=== PATIENT | male | born 1995 | race Caucasian/White ===

== ENCOUNTER 2017-05-16 19:39 | Inpatient (IN) | payer OTHER ==
[~2017-05-16] VITALS: Ht 182.9 cm; Wt 98.0 kg
[~2017-05-16 19:39] MED LIST: PERCOCET 5/31 TABLET PO
[2017-05-16 20:41] LABS: HEMATOCRIT 42.9 % (38.0-50.0); MCH 29.1 PG (29.0-34.0); MCHC 33.8 G/DL (30.0-36.0); MCV 86.1 FL (86-99); PLATELET COUNT 245 K/uL (156-360); RBC DIS.WIDTH-CV 12.9 % (11.8-14.6); RBC DIS.WIDTH-SD 39.9 % (39-53); RED BLOOD COUNT 4.98 M/uL (4.00-5.50); WHITE BLOOD COUNT 24.8 K/uL (4.1-10.2)
[2017-05-16 20:53] LABS: CHLORIDE 104 mEq/L (99-109); POTASSIUM 4.4 mEq/L (3.7-5.4); SODIUM 138 mEq/L (136-147)
[2017-05-16 20:55] LABS: GLUCOSE 98 mg/dL (70-99)
[2017-05-16 20:57] LABS: ANION GAP 10 MEQ/L (2-14); TOTAL BILIRUBIN 0.6 mg/dL (0.0-1.0)
[2017-05-16 20:59] LABS: ALKALINE PHOSPHATASE 67 IU/L (3-129); GFR ESTIMATE (CALCULATED) > 59 mL/min/
[2017-05-16 21:00] LABS: UREA NITROGEN (BUN) 15 mg/dL (9-23)
[2017-05-16 21:02] LABS: CREATINE KINASE 91 IU/L (1-294); TOTAL CK 91 IU/L (1-294)
[2017-05-16 21:08] LABS: ADD MIUA? NO; BILIRUBIN NEGATIVE; BLOOD NEGATIVE; COLOR YELLOW ((YELLOW)); GLUCOSE (STRIP) NEGATIVE; KETONES NEGATIVE; LEUKOCYTES NEGATIVE; NITRITE NEGATIVE; PROTEIN (STRIP) NEGATIVE; SPECIFIC GRAVITY 1.018 (1.000-1.030); UCUL ADDED? NO; UROBILINOGEN 0.2 MG/DL (0.2-1.0)
[2017-05-16 21:09] LABS: CK-MB < 0.4 ng/mL (0.0-4.9)
[2017-05-16 21:32] LABS: INFLUENZA A VIRAL ANTIGEN NEGATIVE; INFLUENZA B VIRAL ANTIGEN NEGATIVE
[2017-05-16 22:54] LABS: ERTH.SED.RATE 12 MM/HR (0-15)
[2017-05-16 22:57] LABS: C-REACTIVE PROTEIN 24.7 MG/L (0-10)
[2017-05-17] MEDS ORDERED: EXCEDRIN MIGRA1 EAC3 PO (01:14)
[2017-05-17 05:06] LABS: APPEARANCE CLEAR/COLORLESS; RED CELL AREA COUNTED 18; RED CELL COUNT 0 /MM^3 (0-1); RED CELL DILUTION 1
[2017-05-17 05:07] LABS: MONONUCLEAR WBC'S ND % (50-90); WBC AREA COUNTED 18; WBC DILUTION 1; WHITE CELL COUNT 0 /MM^3 (0-5); WHITE CELL RAW COUNT 0
[2017-05-17 05:08] LABS: CSF EOSINOPHILS ND % (0-25); POLYNUCLEAR WBC'S ND % (0-3); SPINAL FLD COMMENT NO RBC/WBC SEEN
[2017-05-17 05:19] VITALS: BP 117/57
[2017-05-17 07:18] LABS: HEMATOCRIT 45.2 % (38.0-50.0); MCH 29.8 PG (29.0-34.0); MCHC 33.4 G/DL (30.0-36.0); MCV 89.3 FL (86-99); RBC DIS.WIDTH-SD 42.5 % (39-53); RED BLOOD COUNT 5.06 M/uL (4.00-5.50); WHITE BLOOD COUNT 15.6 K/uL (4.1-10.2)
[2017-05-17 07:47] VITALS: BP 92/55
[2017-05-17 07:50] LABS: INTERNAL CONTROL VALID? YES; MONOSPOT (MONONUCLEOSIS SEROL) NEGATIVE
[2017-05-17 07:57] LABS: HEMATOLOGY COMMENT 1 SMEAR COMPATIBLE; MEAN PLAT.VOLUME 11.9 uM^3 (9.0-12.4); PLAT.SUFFICIENCY ADEQUATE
[2017-05-17 08:00] LABS: PLATELET COUNT 148 K/uL (156-360)
[2017-05-17 08:54] LABS: FERRITIN 186 NG/ML (22-322)
[2017-05-17 11:11] LABS: ABS NEUTROPHIL COUNT 13.7; ANISOCYTOSIS 1+; EOSINOPHIL ABS CT 0
[2017-05-17 12:37] LABS: LYME DISEASE SEROLOGY SCREEN NEGATIVE (NEGATIVE)
[2017-05-17 13:27] LABS: LYME DISEASE SEROLOGY SCREEN NEGATIVE (NEGATIVE)
[2017-05-17 15:40] VITALS: BP 130/60
[2017-05-17 23:55] VITALS: BP 156/97
[2017-05-18 07:45] LABS: EOSINOPHIL (%) 0 % (0-5); HEMATOCRIT 37.8 % (38.0-50.0); IMMATURE GRANULOCYTE (%) 0.3 % (0.0-0.7); INSTRUMENT ABS NEUTROPHIL CT 7.2 K/uL; LYMPHOCYTE COUNT 1.5 K/uL (1.0-2.8); MCH 29.7 PG (29.0-34.0); MCHC 33.6 G/DL (30.0-36.0); MCV 88.3 FL (86-99); MEAN PLAT.VOLUME 12.5 uM^3 (9.0-12.4); MONOCYTE (%) 5.2 % (3-12); MONOCYTE COUNT 0.5 K/uL (0-0.8); NEUTROPHIL (%) 78.3 % (45-76); NEUTROPHIL COUNT 7.2 K/uL (1.8-6.4); RBC DIS.WIDTH-CV 13.2 % (11.8-14.6); RBC DIS.WIDTH-SD 42.9 % (39-53); RED BLOOD COUNT 4.28 M/uL (4.00-5.50); WHITE BLOOD COUNT 9.2 K/uL (4.1-10.2)
[2017-05-18 07:46] LABS: PLATELET COUNT 198 K/uL (156-360)
[2017-05-18 07:47] VITALS: BP 135/87
[2017-05-18] MEDS ORDERED: TERBINAFINE HCL30 GM TP (10:30)
[2017-05-18] MEDS ORDERED: VIBRAMYCIN100 MG PO (10:31)
[2017-05-18] MEDS ORDERED: KEFLEX500 MG PO (10:32)
[2017-05-19 00:46] LABS: HSV CSF Spec Source CSF (())
[2017-05-20 16:01] LABS: Rickettsia (RMSF) IgG Not Detected (Not Detected); Rickettsia (RMSF) IgM Not Detected (Not Detected)
[2017-05-23 12:32] LABS: Rickettsia (RMSF) IgG Not Detected (Not Detected); Rickettsia (RMSF) IgM Not Detected (Not Detected)
== END 2017-05-18 11:45 | disposition home or self-care (01) | DRG 872 ==
LOC: EME 19:39 → EDOF 05-17 03:01 → 5SOUTH 05-17 05:13
PROVIDERS: Emergency Medicine; Hospitalist; Nurse Practitioner Adult Health; Physician Assistant
PROC: 009U3ZX Drainage of Spinal Canal, Percutaneous Approach, Diagnostic (ICD-10-PCS; principal; 2017-05-17)
DX: A41.9 Sepsis, unspecified organism (principal); A69.20 Lyme disease, unspecified; A79.9 Rickettsiosis, unspecified; B35.3 Tinea pedis; L03.116 Cellulitis of left lower limb; L03.115 Cellulitis of right lower limb; L30.9 Dermatitis, unspecified; M54.5 Low back pain; R79.82 Elevated C-reactive protein (CRP); E66.9 Obesity, unspecified; Z68.29 Body mass index [BMI] 29.0-29.9, adult; F17.220 Nicotine dependence, chewing tobacco, uncomplicated
CPT/HCPCS: 70450; 71020; 74177; 80053; 80202; 81003; 82550; 82553; 82728; 82945; 83605; 84157; 85007; 85025; 85027; 85651; 86038; 86140; 86308; 86430; 86617 90; 86618; 86618 90; 86757 90; 87040; 87070; 87205; 87502; 87529 90; 87651 90; 89051; 99281; 99285; J0696; J1650; J1885; J2270; J2405; J3370; J7030; J7050